=== PATIENT | female | born 1995 | race Caucasian/White ===

== ENCOUNTER 2020-11-17 16:00 | Emergency (ER) | payer OTHER ==
[~2020-11-17] VITALS: Ht 167.6 cm; Wt 59.1 kg
[2020-11-17 16:03] VITALS: BP 98/63
[2020-11-17] MEDS ORDERED: LEVE250T55 PO (16:07)
[2020-11-17] MEDS ORDERED: ALPR-341 PO (16:07)
[2020-11-17 16:33] LABS: BASOPHILS % (AUTO) 1.2 % (0.0-2.0); EOSINOPHILS % (AUTO) 4.1 % (1.0-6.0); HEMATOCRIT 45.3 % (36-46); HEMOGLOBIN 15.3 g/dL (12.0-16.0); LYMPHOCYTES # (AUTO) 2.5 K/uL (1.0-4.8); LYMPHOCYTES % (AUTO) 35.5 % (22.0-44.0); MEAN CORPUSCULAR HEMOGLOBIN 33.3 pg (26.0-34.0); MEAN CORPUSCULAR HGB CONC 33.7 G/dL (31.0-37.0); MEAN CORPUSCULAR VOLUME 99 fL (80-100); MONOCYTES # (AUTO) 0.5 K/uL (0.1-1.0); MONOCYTES % (AUTO) 7.1 % (2.0-9.0); NEUTROPHILS # (AUTO) 3.7 K/uL (1.8-7.7); NEUTROPHILS % (AUTO) 52.1 % (40.0-70.0); PLATELET COUNT (AUTO) 230 K/uL (150-450); RED BLOOD CELL COUNT(AUTO) 4.59 MIL/uL (4.00-5.20); RED CELL DISTRIBUTION WIDTH 13.2 % (11.5-14.5)
[2020-11-17 16:43] LABS: ANION GAP 13 mmol/L (8-16); CALCIUM, TOTAL 9.4 mg/dL (8.8-10.5); CARBON DIOXIDE 29 mmol/L (22-29); CHLORIDE 109 mmol/L (98-107); CREATININE 0.68 mg/dL (0.60-1.30); GLOMERULAR FILTR. RATE CALC > 60 mL/min (>60); GLUCOSE,RANDOM 87 mg/dL (70-110); POTASSIUM 3.9 mmol/L (3.5-5.1); SODIUM SERUM 151 mmol/L (136-145); UREA NITROGEN, BLOOD 11 mg/dL (7-18)
[2020-11-17 16:50] LABS: ALANINE AMINOTRANSFERASE 17 U/L (12-78); ALBUMIN 3.9 g/dL (3.4-5.0); ALKALINE PHOSPHATASE 50 U/L (46-116); ASPARTATE AMINOTRANSFERASE 13 U/L (15-37); BILIRUBIN,TOTAL 0.2 mg/dL (0.1-1.0); TOTAL PROTEIN, SERUM 7.4 g/dL (6.4-8.2)
[2020-11-17 16:51] LABS: ACETAMINOPHEN < 2 mcg/mL (10-30)
[2020-11-17 17:01] LABS: SALICYLATE 5.9 mg/dL (2.8-20.0)
== END 2020-11-17 18:24 | disposition left against medical advice (07) ==
LOC: EMS 16:02
DX: R45.851 Suicidal ideations (principal); Z53.21 Procedure and treatment not carried out due to patient leaving prior to being seen by health care provider
CPT/HCPCS: 36415; 80053; 85025; G0480 ×2; G0481

== ENCOUNTER 2021-02-07 12:37 | Inpatient (IN) | payer MEDICAID, OTHER ==
[~2021-02-07] VITALS: Ht 157.5 cm; Wt 52.8 kg
[~2021-02-07 12:37] MED LIST: ALPR-341 PO; LEVE250T55 PO
[2021-02-07] MEDS ORDERED: LevETIRAcetam 500 MG TABLET PO ONE (14:30)
[2021-02-07] MEDS ORDERED: LORazepam 2 MG/ML VIAL IVP ONE (14:30)
[2021-02-07] MEDS ORDERED: ONDANSETRON HCL 4 MG/2 ML VIAL IVP ONE (14:30)
[2021-02-07] MEDS ORDERED: SODIUM CHLORIDE 0.9% 1,000 ML IV ONE (14:30)
[2021-02-07 14:37] LABS: BASOPHILS % (AUTO) 2.4 % (0.0-2.0); HEMATOCRIT 44.1 % (36-46); HEMOGLOBIN 15.2 g/dL (12.0-16.0); LYMPHOCYTES # (AUTO) 2.4 K/uL (1.0-4.8); LYMPHOCYTES % (AUTO) 40.2 % (22.0-44.0); MEAN CORPUSCULAR HEMOGLOBIN 33.3 pg (26.0-34.0); MEAN CORPUSCULAR HGB CONC 34.5 G/dL (31.0-37.0); MEAN CORPUSCULAR VOLUME 97 fL (80-100); MONOCYTES # (AUTO) 0.6 K/uL (0.1-1.0); MONOCYTES % (AUTO) 9.8 % (2.0-9.0); NEUTROPHILS # (AUTO) 2.8 K/uL (1.8-7.7); NEUTROPHILS % (AUTO) 46.6 % (40.0-70.0); PLATELET COUNT (AUTO) 269 K/uL (150-450); RED BLOOD CELL COUNT(AUTO) 4.56 MIL/uL (4.00-5.20); RED CELL DISTRIBUTION WIDTH 13.6 % (11.5-14.5)
[2021-02-07 14:42] LABS: COVID AG,FIA SOURCE NASOPHARYNGEAL
[2021-02-07 14:57] LABS: ANION GAP 16 mmol/L (8-16); CALCIUM, TOTAL 8.7 mg/dL (8.8-10.5); CARBON DIOXIDE 22 mmol/L (22-29); CHLORIDE 98 mmol/L (98-107); CREATININE 0.65 mg/dL (0.60-1.30); GLOMERULAR FILTR. RATE CALC > 60 mL/min (>60); GLUCOSE,RANDOM 75 mg/dL (70-110); PHOSPHORUS 2.5 mg/dL (2.5-4.9); POTASSIUM 3.7 mmol/L (3.5-5.1); SODIUM SERUM 136 mmol/L (136-145); UREA NITROGEN, BLOOD 11 mg/dL (7-18)
[2021-02-07 14:58] LABS: ALANINE AMINOTRANSFERASE 29 U/L (12-78); ALBUMIN 4.3 g/dL (3.4-5.0); ALKALINE PHOSPHATASE 63 U/L (46-116); ASPARTATE AMINOTRANSFERASE 28 U/L (15-37); BILIRUBIN,TOTAL 0.7 mg/dL (0.1-1.0); CREATINE KINASE, TOTAL ONLY 158 U/L (26-192); HCG,QUANTITATIVE < 1 mIU/mL (0-6); TOTAL PROTEIN, SERUM 7.8 g/dL (6.4-8.2)
[2021-02-07 15:22] LABS: B-TYPE NATRIURETIC PEPTIDE < 5 pg/mL (0-100)
[2021-02-07 17:51] LABS: AMPHET/METH SCREEN,URINE POSITIVE (NEGATIVE); BARBITURATE SCREEN, URINE NEGATIVE (NEGATIVE); BENZODIAZEPINES SCREEN,URINE NEGATIVE (NEGATIVE); CANNABINOID SCREEN,URINE POSITIVE (NEGATIVE); COCAINE SCREEN,URINE NEGATIVE (NEGATIVE); METHADONE SCREEN, URINE NEGATIVE (NEGATIVE); OPIATE SCREEN,URINE NEGATIVE (NEGATIVE)
[2021-02-07 17:52] LABS: PHENCYCLIDINE SCREEN,URINE NEGATIVE (NEGATIVE)
[2021-02-07] MEDS ORDERED: LORazepam 2 MG/ML VIAL IM ONE (18:00)
[2021-02-07] MEDS ORDERED: DiphenhydrAMINE HCL 50 MG/ML VIAL IM ONE (18:00)
[2021-02-07] MEDS ORDERED: HALOPERIDOL LACTATE 5 MG/ML VIAL IM ONE (18:00)
[2021-02-07] MEDS ORDERED: ZOLPIDEM TARTRATE 5 MG TABLET PO PRN (19:00)
[2021-02-07] MEDS ORDERED: ACETAMINOPHEN 500 MG TABLET PO ONE (19:30)
[2021-02-07] MEDS ORDERED: NICOTINE 7 MG/24 HOUR PATCH TD ONE (19:30)
[2021-02-07 21:35] VITALS: BP 117/76
[2021-02-07] MEDS: LORazepam 2 MG TABLET PO PRN (22:25)
[2021-02-07 22:35] VITALS: BP 108/69
[2021-02-07 22:37] VITALS: BP 108/69
[2021-02-07 23:35] VITALS: BP 125/77
[2021-02-08] VITALS (9 sets, daily range): BP systolic 108–136; BP diastolic 69–93
[2021-02-08] MEDS ORDERED: PETROLATUM,WHITE 28 GM JELLY TP PRN (06:30)
[2021-02-08] MEDS ORDERED: LOPERAMIDE HCL 2 MG CAPSULE PO PRN (06:30)
[2021-02-08] MEDS ORDERED: ONDANSETRON HCL 4 MG TABLET PO PRN (06:30)
[2021-02-08] MEDS ORDERED: ALBUTEROL SULFATE HFA 90 MCG/PUFF 8 GM INHALER IH PRN (06:30)
[2021-02-08] MEDS ORDERED: BACITRACIN 28 GM OINTMENT TP PRN (06:30)
[2021-02-08] MEDS ORDERED: BENZOCAINE/MENTHOL LOZENGE PO PRN (06:30)
[2021-02-08] MEDS ORDERED: ACETAMINOPHEN 325 MG TABLET PO PRN (06:30)
[2021-02-08] MEDS ORDERED: OMEPRAZOLE 20 MG CAPSULE PO PRN (06:30)
[2021-02-08] MEDS ORDERED: MAGNESIUM HYDROXIDE SUSPENSION 30 ML UDCUP PO PRN (06:30)
[2021-02-08] MEDS ORDERED: CloNIDine HCL 0.1 MG TABLET PO PRN (06:30)
[2021-02-08] MEDS ORDERED: IBUPROFEN 600 MG TABLET PO PRN (06:30)
[2021-02-08] MEDS ORDERED: DOCUSATE SODIUM 100 MG CAPSULE PO PRN (06:30)
[2021-02-08] MEDS ORDERED: MAG HYDROX/AL HYDROX/SIMETH ES 30 ML SUSPENSION UDCUP PO PRN (06:30)
[2021-02-08] MEDS: LORazepam 2 MG TABLET PO PRN ×2 (09:41→13:58)
[2021-02-08] MEDS: DIVALPROEX SODIUM 500 MG DR TABLET PO SCH ×2 (11:00→17:35)
[2021-02-08] MEDS: HALOPERIDOL 5 MG TABLET PO PRN ×2 (12:13→17:35)
[2021-02-08] MEDS: NICOTINE 21 MG/24 HOUR PATCH TD SCH (12:36)
[2021-02-08] MEDS: LevETIRAcetam 250 MG TABLET PO SCH (12:46)
[2021-02-09 00:46] VITALS: BP 102/74
[2021-02-09] MEDS: LORazepam 2 MG TABLET PO PRN ×4 (00:54→20:29)
[2021-02-09 08:03] VITALS: BP 120/76
[2021-02-09] MEDS: DIVALPROEX SODIUM 500 MG DR TABLET PO SCH ×2 (08:16→16:02)
[2021-02-09] MEDS: NICOTINE 21 MG/24 HOUR PATCH TD SCH (08:21)
[2021-02-09] MEDS: LevETIRAcetam 250 MG TABLET PO SCH (08:22)
[2021-02-09] MEDS: HALOPERIDOL 5 MG TABLET PO PRN ×2 (13:01→17:01)
[2021-02-09 16:24] VITALS: BP 133/95
[2021-02-09 16:27] VITALS: BP 133/95
[2021-02-10 00:26] VITALS: BP 122/86
[2021-02-10 00:28] VITALS: BP 122/86
[2021-02-10] MEDS: HALOPERIDOL 5 MG TABLET PO PRN ×2 (03:57→09:00)
[2021-02-10] MEDS: LORazepam 2 MG TABLET PO PRN ×3 (06:54→16:32)
[2021-02-10 08:08] VITALS: BP 130/96
[2021-02-10] MEDS: DIVALPROEX SODIUM 500 MG DR TABLET PO SCH ×2 (08:10→16:12)
[2021-02-10] MEDS: NICOTINE 21 MG/24 HOUR PATCH TD SCH (08:11)
[2021-02-10] MEDS: LevETIRAcetam 250 MG TABLET PO SCH (08:11)
[2021-02-10 10:01] VITALS: BP 130/96
[2021-02-10 16:09] VITALS: BP 128/69
[2021-02-10 16:10] VITALS: BP 128/69
[2021-02-11 05:08] VITALS: BP 122/86
[2021-02-11 05:10] VITALS: BP 122/86
[2021-02-11] MEDS: LORazepam 2 MG TABLET PO PRN ×3 (05:13→14:23)
[2021-02-11 08:04] VITALS: BP 119/70
[2021-02-11] MEDS: NICOTINE 21 MG/24 HOUR PATCH TD SCH (08:26)
[2021-02-11] MEDS: LevETIRAcetam 250 MG TABLET PO SCH (08:26)
[2021-02-11] MEDS: DIVALPROEX SODIUM 500 MG DR TABLET PO SCH ×2 (08:26→16:11)
[2021-02-11 09:03] VITALS: BP 120/72
[2021-02-11] MEDS: HALOPERIDOL 5 MG TABLET PO PRN ×2 (13:15→16:59)
[2021-02-11 16:16] VITALS: BP 125/80
== END 2021-02-11 22:25 | disposition left against medical advice (07) | DRG 753 ==
LOC: EMS 12:42 → B3A 20:00
PROVIDERS: ADMIT Psychiatry & Neurology Psychiatry; ATTEND Psychiatry & Neurology Psychiatry
DX: F31.9 Bipolar disorder, unspecified (principal); R45.851 Suicidal ideations; G40.909 Epilepsy, unspecified, not intractable, without status epilepticus; Z20.822 Contact with and (suspected) exposure to COVID-19; Z91.5 Personal history of self-harm; F15.10 Other stimulant abuse, uncomplicated; G47.00 Insomnia, unspecified; F41.9 Anxiety disorder, unspecified; F12.90 Cannabis use, unspecified, uncomplicated; K21.9 Gastro-esophageal reflux disease without esophagitis; F10.10 Alcohol abuse, uncomplicated; Y90.9 Presence of alcohol in blood, level not specified; K59.00 Constipation, unspecified
CPT/HCPCS: 80053; 80061; 82550; 83735; 83880; 84100; 84484; 84702; 85025; 93005; 99285; G0480; J1200; J1630; J2060; J2405; J7030